=== PATIENT | female | born 1980 | race Caucasian/White ===

== ENCOUNTER 2019-10-15 01:47 | Emergency (ER) | payer BC ==
[~2019-10-15] VITALS: Ht 167.6 cm; Wt 60.3 kg
--- NOTE | 2019-10-15 02:12 | NUR ---
ER at bedside examining patient.
--- NOTE | 2019-10-15 02:15 | NUR ---
Patient to ER bed 7 to gown for evaluation. Side rails up
[2019-10-15 02:16] VITALS: BP_SYST 134
--- NOTE | 2019-10-15 02:23 | NUR ---
Patient transported to radiology via wheelchair, accompanied by Chief Station Engineer.
--- NOTE | 2019-10-15 02:30 | NUR ---
Patient came toe ER. C/O Shortness of Breath x today. Patient states "felt funny and chill around 2330 PM, no chest pain." Hx Anxiety Disorder. Denies Heart Problems. A/O,X4, no chest pain, lung sound clear, oxygen sat 100% RA, vss, no N/V/D.
[2019-10-15 02:55] LABS: BASOPHILS % (AUTO) 0.6 % (0.0-2.0); EOSINOPHILS # (AUTO) 0.2 K/uL (0.0-0.4); EOSINOPHILS % (AUTO) 2.4 % (0.0-4.0); HEMATOCRIT 39.9 % (36-48); LYMPHOCYTES # (AUTO) 2.3 K/uL (1.0-5.5); LYMPHOCYTES % (AUTO) 33.7 % (20.5-51.5); MEAN CORPUSCULAR HEMOGLOBIN 30 pg (27-31); MEAN CORPUSCULAR HGB CONC 35 % (32-36); MEAN CORPUSCULAR VOLUME 84 fL (79.0-98.0); MONOCYTES # (AUTO) 0.5 K/uL (0.0-1.0); MONOCYTES % (AUTO) 6.6 % (1.7-9.3); NEUTROPHILS # (AUTO) 3.9 K/uL (1.8-7.7); NEUTROPHILS % (AUTO) 56.7 % (40.0-70.0); PLATELET COUNT (AUTO) 213 K/uL (130-430); RED BLOOD CELL COUNT(AUTO) 4.74 MIL/uL (4.2-6.2); RED CELL DISTRIBUTION WIDTH 12.2 % (9.0-15.0); WHITE BLOOD COUNT (AUTO) 6.8 K/uL (4.8-10.8)
[2019-10-15 03:11] LABS: CALCIUM 8.7 mg/dL (8.4-11.0); CREATININE 0.72 mg/dL (0.55-1.30); POTASSIUM 3.5 mmol/L (3.5-5.1)
[2019-10-15 03:12] LABS: ALBUMIN 4.1 g/dL (3.4-4.8); TOTAL BILIRUBIN 0.6 mg/dL (0.0-1.0)
[2019-10-15 04:45] VITALS: BP_SYST 134
--- NOTE | 2019-10-15 04:45 | NUR ---
Patient given written and verbal discharge instructions and verbalizes understanding. ER MD discussed with patient the results and treatment provided. Patient in stable condition. ID arm band removed. Patient educated on pain management and to follow up with PMD. Pain Scale 0/10 Opportunity for questions provided and answered.
== END 2019-10-15 04:45 | disposition home or self-care (01) ==
LOC: SED 01:47
DX: R06.02 Shortness of breath (principal); R00.2 Palpitations; F41.9 Anxiety disorder, unspecified; E87.1 Hypo-osmolality and hyponatremia; R73.9 Hyperglycemia, unspecified; R03.0 Elevated blood-pressure reading, without diagnosis of hypertension
CPT/HCPCS: 36415; 71045; 80053; 81025; 85025; 93005; 99285